=== PATIENT | male | born 1995 | race Two or more races ===

== ENCOUNTER 2018-08-20 06:23 | Emergency (ER) | payer MEDICAID, OTHER ==
[~2018-08-20] VITALS: Ht 170.2 cm; Wt 56.7 kg
--- NOTE | 2018-08-20 06:36 | NUR ---
PT TO ROOM AND AWAITING ERP AND ORDERS.
[2018-08-20] MEDS ORDERED: ONDANSETRON 2MG/ML, 2ML IVPush ONE (07:00)
[2018-08-20] MEDS ORDERED: SODIUM CHLORIDE 0.9% 1,000ML IVBOLUS ONE (07:00)
[2018-08-20] MEDS ORDERED: FAMOTIDINE 20 MG/2 ML IVP ONE (07:00)
--- NOTE | 2018-08-20 07:00 | NUR ---
received report from kathie otoole.
[2018-08-20 07:21] LABS: BASOPHILS # (AUTO) 0.05 x10^3/uL (0-0.1); BASOPHILS % (AUTO) 0 % (0-1); EOSINOPHILS % (AUTO) 0 % (1-7); LYMPHOCYTES # (AUTO) 1.13 x10^3/uL (1-3.4); LYMPHOCYTES % (AUTO) 10 % (22-44); MD NO; MEAN CORPUSCULAR HEMOGLOBIN 31.1 pg (27.5-34.5); MEAN CORPUSCULAR HGB CONC 34.5 g/dL (33.2-36.2); MEAN CORPUSCULAR VOLUME 90.3 fL (81-97); MEAN PLATELET VOLUME 8.1 fL (7.4-10.4); MONOCYTES # (AUTO) 0.48 x10^3/uL (0.2-0.8); MONOCYTES % (AUTO) 4 % (2-9); NEUTROPHILS # (AUTO) 9.32 x10^3/uL (1.8-6.8); NEUTROPHILS % (AUTO) 85 % (42-75); PLATELET COUNT 333 x10^3/uL (130-400); RED CELL DISTRIBUTION WIDTH 12.8 % (9.4-14.8)
[2018-08-20] MEDS ORDERED: FAMOTIDINE 20 MG/2 ML ONE (07:26)
[2018-08-20] MEDS ORDERED: ONDANSETRON 2MG/ML, 2ML ONE (07:27)
[2018-08-20 07:31] LABS: ALBUMIN 4.7 g/dL (3.4-5.0); ANION GAP 10 mmol/L (5-15); CALCIUM 9.6 mg/dL (8.5-10.1); CHLORIDE 103 mmol/L (98-107)
[2018-08-20 07:35] LABS: ALANINE AMINOTRANSFERASE 31 U/L (12-78); ALKALINE PHOSPHATASE 80 U/L (45-117); BILIRUBIN,TOTAL 1.2 mg/dL (0.2-1.0); CREATININE 0.94 mg/dL (0.7-1.3); TOTAL PROTEIN 8.3 g/dL (6.4-8.2)
[2018-08-20 08:10] LABS: MICROSCOPIC INDICATED
[2018-08-20 08:21] LABS: CULTURE INDICATED? YES
[2018-08-20 08:59] VITALS: BP 149/89
== END 2018-08-20 09:24 | disposition home or self-care (01) ==
LOC: ED 08:52
DX: R10.84 Generalized abdominal pain (principal); R11.2 Nausea with vomiting, unspecified
CPT/HCPCS: 36415; 74021; 80053; 81001; 83690; 85025; 87086; 96361; 96374; 96375; 99284; J2405; J3490; J7030